=== PATIENT | male | born 1990 | race Two or more races ===

== ENCOUNTER 2017-05-27 12:49 | Emergency (ER) | payer OTHER ==
[~2017-05-27] VITALS: Ht 177.8 cm; Wt 95.0 kg
[2017-05-27 12:51] VITALS: BP 122/85
[2017-05-27] MEDS ORDERED: DIPH,PERTUSS(ACELL),TET VAC/PF 0.5 ML IM-VACC ONE ×2 (13:30→13:33)
[2017-05-27] MEDS ORDERED: LIDOCAINE 1%, 20ML INFIL ONE (13:30)
[2017-05-27] MEDS ORDERED: LIDOCAINE 1%, 10ML ONE (13:34)
== END 2017-05-27 15:10 | disposition home or self-care (01) ==
LOC: ED 15:04
DX: S61.112A Laceration without foreign body of left thumb with damage to nail, initial encounter (principal); W45.8XXA Other foreign body or object entering through skin, initial encounter; Y93.89 Activity, other specified; Y92.89 Other specified places as the place of occurrence of the external cause; Y99.9 Unspecified external cause status
CPT/HCPCS: 12001; 12002; 90471; 90715

== ENCOUNTER 2017-06-05 11:35 | Emergency (ER) | payer OTHER ==
[~2017-06-05] VITALS: Ht 170.2 cm; Wt 86.0 kg
[2017-06-05 11:42] VITALS: BP 131/84
[2017-06-05] MEDS ORDERED: DIVA250T6 PO (11:55)
== END 2017-06-05 13:09 | disposition home or self-care (01) ==
LOC: ED 12:10
DX: S61.012D Laceration without foreign body of left thumb without damage to nail, subsequent encounter (principal); G40.909 Epilepsy, unspecified, not intractable, without status epilepticus; X58.XXXD Exposure to other specified factors, subsequent encounter
CPT/HCPCS: 99283

== ENCOUNTER → 2018-12-07 | Outpatient (CLI) | payer BC ==
[~2018-12-07] MED LIST: DIVA-59 PO
== END | disposition home or self-care (01) ==
LOC: CFH 08:41
PROVIDERS: ATTEND Internal Medicine Cardiovascular Disease
DX: I05.9 Rheumatic mitral valve disease, unspecified (principal)
CPT/HCPCS: 93306

== ENCOUNTER 2018-12-27 20:36 | Emergency (ER) | payer BC ==
[~2018-12-27] VITALS: Ht 170.2 cm; Wt 97.2 kg
[2018-12-27 23:47] VITALS: BP 119/77
== END 2018-12-27 23:51 | disposition home or self-care (01) ==
LOC: ED 21:13
DX: G44.219 Episodic tension-type headache, not intractable (principal); R42 Dizziness and giddiness; G43.909 Migraine, unspecified, not intractable, without status migrainosus; G40.909 Epilepsy, unspecified, not intractable, without status epilepticus; Z88.0 Allergy status to penicillin
CPT/HCPCS: 96372; 99283; J1885; J3030

== ENCOUNTER 2019-05-01 10:46 | Emergency (ER) | payer BC ==
[~2019-05-01] VITALS: Ht 182.9 cm; Wt 97.2 kg
--- NOTE | 2019-05-01 11:33 | NUR ---
PATIENT BROUGHT BACK FROM TRIAGE WITH CHIEF COMPLAINT OF SORE THROAT SINCE , DEVELOPED COUGH AND FEVER TODAY.
[2019-05-01] MEDS ORDERED: BENZONATATE 100 MG CAPSULE ONE (11:56)
[2019-05-01] MEDS ORDERED: IBUPROFEN 200 MG TABLET ONE (11:56)
[2019-05-01] MEDS ORDERED: BENZONATATE 100 MG CAPSULE PO ONE (12:00)
[2019-05-01] MEDS ORDERED: IBUPROFEN 200 MG TABLET PO ONE (12:00)
[2019-05-01 12:22] LABS: RAPID INFLUENZA A Negative (Negative); RAPID INFLUENZA B POSITIVE (Negative)
--- NOTE | 2019-05-01 12:36 | NUR ---
PATIENT RESTING IN BED, CALL LIGHT IN REACH.
[2019-05-01 12:39] VITALS: BP 111/58
--- NOTE | 2019-05-01 12:53 | NUR ---
DASIA MARINO AT BEDSIDE TO DISCUSS POC
--- NOTE | 2019-05-01 12:57 | NUR ---
DICHARGE INSTRUCTIONS REVIEWED
== END 2019-05-01 13:12 | disposition home or self-care (01) ==
LOC: ED 12:45
DX: J10.1 Influenza due to other identified influenza virus with other respiratory manifestations (principal); G40.909 Epilepsy, unspecified, not intractable, without status epilepticus
CPT/HCPCS: 71046; 87400; 99284